=== PATIENT | female | born 2000 | race Caucasian/White ===

== ENCOUNTER → 2025-04-17 11:12 | Outpatient (CLI) | payer OTHER, SELFPAY ==
--- NOTE | 2025-04-17 12:02 | DI.RAD.S_ITS ---
PROCEDURE: XR FOREARM LT 2V INDICATIONS: Please evaluate for wrist and forearm fracture TECHNIQUE: 2 views of the forearm were acquired. COMPARISON: [facility], CR, XR WRIST LT MIN 3V, 04/17/2025, 11:07. FINDINGS: Bones: No fractures or dislocations. No suspicious bony lesions. Soft tissues: No suspicious soft tissue calcifications or masses. IMPRESSION: Unremarkable plain films, without a displaced fracture seen. Dictated by: Sterling Garza M.D. on 04/17/2025 at 11:28 Approved by: Sterling Garza M.D. on 04/17/2025 at 11:28
--- NOTE | 2025-04-17 12:02 | DI.RAD.S_ITS ---
PROCEDURE: XR WRIST LT MIN 3V INDICATIONS: Please evaluate for wrist and forearm fracture TECHNIQUE: 4 views of the wrist were acquired. COMPARISON: [facility], CR, XR FOREARM LT 2V, 04/17/2025, 11:06. FINDINGS: Bones: No fractures or dislocations. No navicular fractures are seen. No suspicious bony lesions. Soft tissues: No suspicious soft tissue calcifications. IMPRESSION: Plain film study within normal limits. Dictated by: Sterling Garza M.D. on 04/17/2025 at 11:28 Approved by: Sterling Garza M.D. on 04/17/2025 at 11:29
== END ==
PROVIDERS: Referring Provider Chiropractor; Visit Provider Chiropractor
DX: S63.502A Unspecified sprain of left wrist, initial encounter (principal); M79.632 Pain in left forearm; X58.XXXA Exposure to other specified factors, initial encounter
CPT/HCPCS: 73090; 73110